=== PATIENT | male | born 1980 | race Caucasian/White ===

== ENCOUNTER → 2018-11-21 | Emergency (ER) | payer SELFPAY | END | disposition home or self-care (01) | LOC: FTE 08:34 | DX: Z04.1 Encounter for examination and observation following transport accident (principal) | CPT/HCPCS: 99282 ==

== ENCOUNTER 2018-12-01 20:12 | Emergency (ER) | payer OTHER ==
[2018-12-01] MEDS: TRIMETHOPRIM/SULFAMETHOX (DS) TAB PO (22:32)
[2018-12-01] MEDS: CEFTRIAXONE 1 GM INJ IM (22:32)
== END 2018-12-01 23:06 | disposition home or self-care (01) ==
LOC: FTE 23:06
DX: L03.115 Cellulitis of right lower limb (principal)
CPT/HCPCS: 73562; 96372; 99284-25